=== PATIENT | female | born 1995 | race Caucasian/White ===

== ENCOUNTER 2017-07-20 03:22 | Inpatient (IN) | payer BC ==
[2017-07-20] MEDS ORDERED: Ondansetron 4 MG/2 ML SDV IVPUSH PRN ×2 (03:34→04:30)
[2017-07-20] MEDS ORDERED: Nalbuphine 20 MG/1 ML Amp IVPUSH PRN (03:34)
[2017-07-20] MEDS ORDERED: Sodium Chloride 0.9% 10 ML Syringe FLUSH PRN (03:34)
[2017-07-20] MEDS ORDERED: Acetaminophen 325 MG Tab PO PRN ×2 (03:34→12:27)
[2017-07-20] MEDS ORDERED: Oxytocin/Lactated Ringers 10 UNIT/1,000 ML BAG IV SCH (03:45)
--- NOTE | 2017-07-20 03:48 | PCM.LDHP ---
L&D History of Present Illness - General Date of Service: 07/20/17 Admit Problem/Dx: Patient Status Order with Admit Dx/Problem 07/20/17 03:35 Patient Status [ADT] Routine Admission Diagnosis/Problem Admission Diagnosis/Problem Normal labor Source of Information: Patient History Limitations: Reports: No Limitations - History of Present Illness Introduction:: Patient is a 22 y/o at 39 1/7 wks today who presents with concerns of SROM/ labor. States last night before bed had some contractions. Then awoke with what she thought was a gush of fluid. Contractions have been very intense since that time. 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: , Spontaneous : 2 Para: 0 LMP (Approximate): - Past Surgical History HEENT Surgical History: Reports: Oral Surgery (tooth extraction) GI Surgical History: Reports: Cholecystectomy, Colonoscopy, EGD Social & Family History - Tobacco Use Smoking Status *Q: Never Smoker - Alcohol Use Alcohol Use History: No - Recreational Drug Use Recreational Drug Use: No H&P Review of Systems - Review of Systems: Review Of Systems: See Below General: Reports: No Symptoms Gastrointestinal: Reports: Abdominal Pain Genitourinary: Reports: No Symptoms Musculoskeletal: Reports: No Symptoms Neurological: Reports: No Symptoms L&D Exam - Exam Exam: See Below - Vital Signs Weight: 89.04 kg - OB Specific Contraction Intensity: Moderate Movement: Active Heart Tones: Present Heart Tones per Min: 120 Heart Rate (FHR) Variability: Moderate (6-25 bmp) Presentation: Vertex - Ely Score Ely Score Cervix Position: Posterior Ely Score Consistency: Soft Ely Score Effacement: >80% Ely Score Dilation: 3-4 cm Ely Score 's Station: -2 Ely Score Total: 8 - Exam General: Alert, Oriented, Cooperative Lungs: Clear to Auscultation, Normal Respiratory Effort Cardiovascular: Regular Rate, Regular Rhythm GI/Abdominal Exam: Soft, Non-Tender Genitourinary: Normal external exam Extremities: Normal Inspection Skin: Warm, Dry, Intact - Problem List (1) 39 weeks gestation of SNOMED Code(s): 04558731 ICD Code: Z3A.39 - 39 WEEKS GESTATION OF Status: Acute Current Visit: Yes (2) Normal labor SNOMED Code(s): 42155668 ICD Code: O80 - ENCOUNTER FOR FULL-TERM UNCOMPLICATED DELIVERY; Z37.9 - OUTCOME OF DELIVERY, UNSPECIFIED Status: Acute Current Visit: Yes Problem List Initiated/Reviewed/Updated: Yes Orders Last 24hrs: Active Orders 24 hr Category Date Time Status Patient Status [ADT] Routine ADT 07/20/17 03:35 Ordered Activity as Tolerated [RC] PFP Care 07/20/17 03:35 Ordered Communication Order [RC] ASDIRECTED Care 07/20/17 03:35 Ordered Heart Tones [RC] ASDIRECTED Care 07/20/17 03:36 Ordered Notify Provider [RC] PFP Care 07/20/17 03:35 Ordered Notify Provider [RC] PRN Care 07/20/17 03:35 Ordered Peripheral IV Care [RC] . DIRECTED Care 07/20/17 03:36 Ordered Vital Signs [RC] PER UNIT ROUTINE Care 07/20/17 03:35 Ordered Regular Diet [DIET] Diet 07/20/17 Breakfast Ordered CBC W/O DIFF,HEMOGRAM [HEME] Urgent Lab 07/20/17 03:34 Ordered TYPE AND SCREEN [BBK] Urgent Lab 07/20/17 03:34 Ordered Acetaminophen [Tylenol] Med 07/20/17 03:34 Ordered 650 mg PO Q4H PRN Lactated Ringers [Ringers, Lactated] 1,000 ml Med 07/20/17 03:45 Ordered IV ASDIRECTED Nalbuphine [Nubain] Med 07/20/17 03:34 Ordered 10 mg IVPUSH Q2H PRN Ondansetron [Zofran] Med 07/20/17 03:34 Ordered 4 mg IVPUSH Q4H PRN Oxytocin/Lactated Ringers [Pitocin in LR 10 Units/1,000 Med 07/20/17 03:45 Ordered ML] 10 unit in 1,000 ml IV .CONTINUOUS Sodium Chloride 0.9% [Saline Flush] Med 07/20/17 03:34 Ordered 10 ml FLUSH ASDIRECTED PRN Electronic Heart Tones Ext w TOCO [WOMSER] Oth 07/20/17 03:35 Ordered Routine Electronic Heart Tones Internal [WOMSER] Per Unit Ot 07/20/17 03:35 Ordered Routine Peripheral IV Insertion Adult [OM.PC] Routine Oth 07/20/17 03:35 Ordered Resuscitation Status Routine Resus Stat 07/20/17 03:34 Ordered Medication Orders Acetaminophen (Tylenol) 650 mg PO Q4H PRN PRN Reason: Pain (Mild 1-3) and fever Lactated Ringer's (Ringers, Lactated) 1,000 mls @ 100 mls/hr IV ASDIRECTED YAW Oxytocin/Lactated Ringer's (Pitocin In Lr 10 Units/1,000 Ml) 10 unit in 1,000 mls @ 500 mls/hr IV .CONTINUOUS YAW Nalbuphine HCl (Nubain) 10 mg IVPUSH Q2H PRN PRN Reason: Pain (moderate 4-6) Ondansetron HCl (Zofran) 4 mg IVPUSH Q4H PRN PRN Reason: Nausea/Vomiting Sodium Chloride (Saline Flush) 10 ml FLUSH ASDIRECTED PRN PRN Reason: Keep Vein Open Assessment/Plan Comment:: 22 y/o at 39 1/7 wks presents with labor/SROM * CBC and T&S * GBS negative, no need for antibiotics * Pain management per patient preference, prefers epidural * Anticipate Peyton Fernandez MD
[2017-07-20] MEDS: Lactated Ringers 1,000 ML IV SCH ×2 (03:50→04:40)
[2017-07-20] MEDS ORDERED: fentaNYL 100 MCG/2 ML SDV EPIDUR ONE (04:30)
[2017-07-20] MEDS ORDERED: diphenhydrAMINE 50 MG/ML SDV IVPUSH PRN (04:30)
[2017-07-20] MEDS ORDERED: ePHEDrine 50 MG/ML SDV IVPUSH PRN (04:30)
--- NOTE | 2017-07-20 05:08 | PCM.PREANE ---
Preanesthetic Assessment - Anesthesia/Transfusion/Family Hx Anesthesia History: Prior Anesthesia Without Reaction Family History of Anesthesia Reaction: No Intubation History: Unknown - Review of Systems General: No Symptoms Pulmonary: No Symptoms Cardiovascular: No Symptoms Gastrointestinal: No Symptoms, Other (GERD) Neurological: No Symptoms Other: Reports: None - Physical Assessment Respiratory Rate: 20 Vital Signs: Last Vital Signs Temp 36.7 C 07/20/17 03:35 Pulse 95 07/20/17 03:35 Resp 20 07/20/17 03:35 BP 115/59 L 07/20/17 03:35 Pulse Ox Height: 1.6 m Weight: 90.718 kg ASA Class: 2 Mental Status: Alert & Oriented x3 Airway Class: Mallampati = 1 Dentition: Reports: Normal Dentition Thyro-Mental Finger Breadths: 3 Mouth Opening Finger Breadths: 3 ROM/Head Extension: Full Lungs: Clear to Auscultation, Normal Respiratory Effort Cardiovascular: Regular Rate, Regular Rhythm - Lab Values: Laboratory Last Values WBC 20.99 K/mm3 (3.98-10.04) H 07/20/17 03:52 RBC 4.09 M/mm3 (3.98-5.22) 07/20/17 03:52 Hgb 10.4 gm/L (11.2-15.7) L 07/20/17 03:52 Hct 32.5 % (34.1-44.9) L 07/20/17 03:52 MCV 79.5 fl (79.4-94.8) 07/20/17 03:52 MCH 25.4 pg (25.6-32.2) L 07/20/17 03:52 MCHC 32.0 g/dl (32.2-35.5) L 07/20/17 03:52 RDW Std Deviation 42.5 fL (36.4-46.3) 07/20/17 03:52 Plt Count 600 K/mm3 (182-369) H 07/20/17 03:52 MPV 9.7 fl (9.4-12.3) 07/20/17 03:52 Blood Type O POSITIVE 07/20/17 03:52 Gel Antibody Screen Negative 07/20/17 03:52 - Allergies Allergies/Adverse Reactions: Allergies Allergy/AdvReac Type Severity Reaction Status Date / Time metronidazole [From Flagyl] Allergy Swelling Verified 06/27/17 17:47 morphine Allergy Itching Verified 06/27/17 17:47 - Acknowledgements Anesthesia Type Planned: Epidural Pt an Appropriate Candidate for the Planned Anesthesia: Yes Alternatives and Risks of Anesthesia Discussed w Pt/Guardian: Yes Pt/Guardian Understands and Agrees with Anesthesia Plan: Yes 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: , Spontaneous - Past Surgical History HEENT Surgical History: Reports: Oral Surgery (tooth extraction) GI Surgical History: Reports: Cholecystectomy, Colonoscopy, EGD - SUBSTANCE USE Smoking Status *Q: Never Smoker Recreational Drug Use History: No - HOME MEDS Home Medications: Home Meds Cimetidine [Tagamet Hb] 200 mg PO DAILY 06/27/17 [History] Omeprazole/Sodium Bicarbonate [Omeprazole-Bicarb 40-1,100 Cap] 1 each PO BID 09/03 [History] Rhl933/FA/Omega3/Dha/Fish Oil [ Gummies] 1 each PO DAILY 06/27/17 [ History] - CURRENT (IN HOUSE) MEDS Current Meds: Current Medications Acetaminophen (Tylenol) 650 mg PO Q4H PRN PRN Reason: Pain (Mild 1-3) and fever Diphenhydramine HCl (Benadryl) 25 mg IVPUSH Q6H PRN PRN Reason: Pruritis Ephedrine Sulfate (Ephedrine Sulfate) 5 mg IVPUSH ASDIRECTED PRN PRN Reason: Hypotension Fentanyl/Bupivacaine HCl (Fentanyl/Bupivacaine/Ns 2 Mcg-0.125% 100 Ml) 100 ml EPIDUR ASDIRECTED YAW Lactated Ringer's (Ringers, Lactated) 1,000 mls @ 100 mls/hr IV ASDIRECTED YAW Oxytocin/Lactated Ringer's (Pitocin In Lr 10 Units/1,000 Ml) 10 unit in 1,000 mls @ 500 mls/hr IV .CONTINUOUS YAW Nalbuphine HCl (Nubain) 10 mg IVPUSH Q2H PRN PRN Reason: Pain (moderate 4-6) Ondansetron HCl (Zofran) 4 mg IVPUSH Q4H PRN PRN Reason: Nausea/Vomiting Ondansetron HCl (Zofran) 4 mg IVPUSH ONETIME PRN PRN Reason: Nausea/Vomiting Sodium Chloride (Saline Flush) 10 ml FLUSH ASDIRECTED PRN PRN Reason: Keep Vein Open Discontinued Medications Fentanyl (Sublimaze) 100 mcg EPIDUR ONETIME ONE Stop: 07/20/17 04:31
[2017-07-20] MEDS: Bupivacaine/fentaNYL/NS 100 ML Bag EPIDUR SCH ×2 (05:10→11:00)
--- NOTE | 2017-07-20 07:33 | PCM.PNLD ---
Labor Progress Note - VS & Meds Vital Signs: Last Vital Signs Temp 36.7 C 07/20/17 03:35 Pulse 95 07/20/17 03:35 Resp 20 07/20/17 05:08 BP 115/59 L 07/20/17 03:35 Pulse Ox Active Medications: Current Medications Acetaminophen (Tylenol) 650 mg PO Q4H PRN PRN Reason: Pain (Mild 1-3) and fever Diphenhydramine HCl (Benadryl) 25 mg IVPUSH Q6H PRN PRN Reason: Pruritis Ephedrine Sulfate (Ephedrine Sulfate) 5 mg IVPUSH ASDIRECTED PRN PRN Reason: Hypotension Fentanyl/Bupivacaine HCl (Fentanyl/Bupivacaine/Ns 2 Mcg-0.125% 100 Ml) 100 ml EPIDUR ASDIRECTED YAW Last Admin: 07/20/17 05:10 Dose: 100 ml Lactated Ringer's (Ringers, Lactated) 1,000 mls @ 100 mls/hr IV ASDIRECTED [facility] Last Admin: 07/20/17 04:40 Dose: 100 mls/hr Oxytocin/Lactated Ringer's (Pitocin In Lr 10 Units/1,000 Ml) 10 unit in 1,000 mls @ 500 mls/hr IV .CONTINUOUS [facility] Nalbuphine HCl (Nubain) 10 mg IVPUSH Q2H PRN PRN Reason: Pain (moderate 4-6) Ondansetron HCl (Zofran) 4 mg IVPUSH Q4H PRN PRN Reason: Nausea/Vomiting Ondansetron HCl (Zofran) 4 mg IVPUSH ONETIME PRN PRN Reason: Nausea/Vomiting Sodium Chloride (Saline Flush) 10 ml FLUSH ASDIRECTED PRN PRN Reason: Keep Vein Open Discontinued Medications Fentanyl (Sublimaze) 100 mcg EPIDUR ONETIME ONE Stop: 07/20/17 04:31 Last Admin: 07/20/17 05:10 Dose: 100 mcg - Uterine Contractions Uterine Monitoring Mode: External [place] Contraction Intensity: Moderate Uterine Resting Tone: Soft - Monitoring Monitor Mode: External Ultrasound Heart Rate (FHR) Baseline: 115 Heart Rate (FHR) Variability: Moderate (6-25 bmp) Accelerations: Present, 15x15 Decelerations: None Strip Review: Category I - Vaginal Exam Dilation (cm): 5-6 Effacement (Percent): 100 Station: 0 Cervical Position: Midposition - Labor Progress (Free Text) Labor Progress: Patient doing well. Comfortable with epidural. Continues to leak clear fluid. Making good change without augmentation. Continue present management.
--- NOTE | 2017-07-20 08:43 | PCM.SN ---
- Free Text/Narrative Note: Called for increasing pain with contractions. Evaluated epidural catheter and it remains at 9cm at the skin. Patient wishes to proceed with epidural bolus. 10ml of 0.25% Bupivacaine was injected following negative aspiration in 5ml increments. Patient verbalized increased comfort. Epidural level achieved was T10 after 15 minutes. Vital signs remained stable.
[2017-07-20] MEDS ORDERED: Oxytocin 10 Units/1 ML SDV ONE (11:41)
[2017-07-20] MEDS ORDERED: Oxytocin 10 Units/1 ML SDV IM ONE (11:45)
--- NOTE | 2017-07-20 12:15 | PCM.DEL ---
L & D Note - General Info Date of Service: 07/20/17 - Delivery Note Labor: Spontaneous Delivery Outcome: Livebirth Delivery Method: Spontaneous Vaginal Delivery Delivery Mode: Spontaneous Presentation: Right Occiput Anterior (MARIMAR) Nuchal Cord: Present (Tight, not reduced ) Anesthesia Type: Epidural Amniotic Fluid Description: Clear Episiotomy Type: None Laceration: 1st Degree (perineal), Labial (left) Suture type: Vicryl Suture size: 2-0 Placenta: Intact, Spontaneous Cord: 3 Vessels Estimated Blood Loss: 300 [place]: Bulb Syringe, Stimulated, Warmed, [place] Used, Warmer Used Score 1 min: 8 Score 5 min: 9 Delivery Comments (Free Text/Narrative):: Patient found to be complete and began pushing. With maternal pushing effort head delivered from an MARIMAR presentation. Nuchal cord present, but tight and so not reduced. With gentle downward tractions the shoulders and body delivered. Infant placed on maternal abdomen. Cord clamped and cut. Cord blood obtained. Placenta allowed time to separate and spontaneously expelled. Inspection showed a 1st degree perineal laceration which was repaired with a single interrupted suture of 2-0 vicryl and a left sided labial tear which was repaired with a running 2-0 vicryl. - Patient Data Vitals - Most Recent: Last Vital Signs Temp 36.7 C 07/20/17 03:35 Pulse 95 07/20/17 03:35 Resp 20 07/20/17 05:08 BP 115/59 L 07/20/17 03:35 Pulse Ox Weight - Most Recent: 90.718 kg I&O - Last 24 Hours: Intake & Output 07/19/17 07/20/17 07/20/17 22:59 06:59 14:59 Intake Total 1000 Balance 1000 Lab Results Last 24 Hours: Laboratory Results - last 24 hr 07/20/17 07/20/17 Range/Units 03:52 03:52 WBC 20.99 H (3.98-10.04) K/mm3 RBC 4.09 (3.98-5.22) M/mm3 Hgb 10.4 L (11.2-15.7) gm/L Hct 32.5 L (34.1-44.9) % MCV 79.5 (79.4-94.8) fl MCH 25.4 L (25.6-32.2) pg MCHC 32.0 L (32.2-35.5) g/dl RDW Std Deviation 42.5 (36.4-46.3) fL Plt Count 600 H (182-369) K/mm3 MPV 9.7 (9.4-12.3) fl Blood Type O POSITIVE Gel Antibody Screen Negative Med Orders - Current: Current Medications Acetaminophen (Tylenol) 650 mg PO Q4H PRN PRN Reason: Pain (Mild 1-3) and fever Diphenhydramine HCl (Benadryl) 25 mg IVPUSH Q6H PRN PRN Reason: Pruritis Ephedrine Sulfate (Ephedrine Sulfate) 5 mg IVPUSH ASDIRECTED PRN PRN Reason: Hypotension Fentanyl/Bupivacaine HCl (Fentanyl/Bupivacaine/Ns 2 Mcg-0.125% 100 Ml) 100 ml EPIDUR ASDIRECTED YAW Last Admin: 07/20/17 11:00 Dose: 100 ml Lactated Ringer's (Ringers, Lactated) 1,000 mls @ 100 mls/hr IV ASDIRECTED [facility] Last Admin: 07/20/17 04:40 Dose: 100 mls/hr Oxytocin/Lactated Ringer's (Pitocin In Lr 10 Units/1,000 Ml) 10 unit in 1,000 mls @ 500 mls/hr IV .CONTINUOUS YAW Last Admin: 07/20/17 11:27 Dose: 500 mls/hr Nalbuphine HCl (Nubain) 10 mg IVPUSH Q2H PRN PRN Reason: Pain (moderate 4-6) Ondansetron HCl (Zofran) 4 mg IVPUSH Q4H PRN PRN Reason: Nausea/Vomiting Ondansetron HCl (Zofran) 4 mg IVPUSH ONETIME PRN PRN Reason: Nausea/Vomiting Sodium Chloride (Saline Flush) 10 ml FLUSH ASDIRECTED PRN PRN Reason: Keep Vein Open Discontinued Medications Fentanyl (Sublimaze) 100 mcg EPIDUR ONETIME ONE Stop: 07/20/17 04:31 Last Admin: 07/20/17 05:10 Dose: 100 mcg Oxytocin (Pitocin) Confirm Administered Dose 10 unit .ROUTE .STK-MED ONE Stop: 07/20/17 11:42 - Problem List & Annotations (1) 39 weeks gestation of SNOMED Code(s): 05483104 Code(s): Z3A.39 - 39 WEEKS GESTATION OF Status: Acute Current Visit: Yes (2) Normal labor SNOMED Code(s): 94136471 Code(s): O80 - ENCOUNTER FOR FULL-TERM UNCOMPLICATED DELIVERY; Z37.9 - OUTCOME OF DELIVERY, UNSPECIFIED Status: Acute Current Visit: Yes (3) Vaginal delivery SNOMED Code(s): 916490406 Code(s): O80 - ENCOUNTER FOR FULL-TERM UNCOMPLICATED DELIVERY Status: Acute Current Visit: Yes - Problem List Review Problem List Initiated/Reviewed/Updated: Yes - My Orders Last 24 Hours: My Active Orders 07/20/17 03:34 Acetaminophen [Tylenol] 650 mg PO Q4H PRN Nalbuphine [Nubain] 10 mg IVPUSH Q2H PRN Ondansetron [Zofran] 4 mg IVPUSH Q4H PRN Sodium Chloride 0.9% [Saline Flush] 10 ml FLUSH ASDIRECTED PRN Resuscitation Status Routine 07/20/17 03:35 Patient Status [ADT] Routine Activity as Tolerated [RC] PFP Communication Order [RC] ASDIRECTED Notify Provider [RC] PFP Notify Provider [RC] PRN Vital Signs [RC] PER UNIT ROUTINE Electronic Heart Tones Ext w TOCO [WOMSER] Routine Electronic Heart Tones Internal [WOMSER] Per Unit Routine Peripheral IV Insertion Adult [OM.PC] Routine 07/20/17 03:45 Lactated Ringers [Ringers, Lactated] 1,000 ml IV ASDIRECTED Oxytocin/Lactated Ringers [Pitocin in LR 10 Units/1,000 ML] 10 unit in 1,000 ml IV .CONTINUOUS 07/20/17 12:08 Patient Status Manage Transfer [TRANSFER] Routine 07/20/17 Breakfast Regular Diet [DIET] - Assessment Assessment:: 22 y/o G2 now P1011 PPD#0 from at 39 1/7 wks - Plan Plan:: * Routine cares * Encourage breast feeding * Discharge home in 1-2 days Peyton Fernandez MD
[2017-07-20] MEDS ORDERED: Benzocaine/Menthol 20%-0.5% Spray 56 GM Canister TOP PRN (12:27)
[2017-07-20] MEDS ORDERED: Witch Hazel Medicated Pads 100/Jar TOP PRN (12:27)
[2017-07-20] MEDS ORDERED: Lanolin 100% Cream 7 GM Tube TOP PRN (12:27)
[2017-07-20] MEDS ORDERED: Bupivacaine 0.25% 10 ML SDV ONE (12:27)
[2017-07-20] MEDS ORDERED: Docusate Sodium 100 MG Cap PO PRN (12:27)
[2017-07-20] MEDS: Ibuprofen 600 MG Tab PO PRN (20:17)
[2017-07-21] MEDS: Ibuprofen 600 MG Tab PO PRN (02:11)
--- NOTE | 2017-07-21 07:36 | PCM.PNPP ---
- General Info Date of Service: 07/21/17 Functional Status: Reports: Pain Controlled, Tolerating Diet, Ambulating, Urinating - Review of Systems General: Reports: No Symptoms Pulmonary: Reports: No Symptoms Cardiovascular: Reports: No Symptoms Gastrointestinal: Reports: No Symptoms Genitourinary: Reports: No Symptoms Musculoskeletal: Reports: No Symptoms - Patient Data Vital Signs - Most Recent: Last Vital Signs Temp 37.0 C 07/20/17 20:14 Pulse 85 07/21/17 03:04 Resp 16 07/21/17 03:04 BP 133/56 L 07/21/17 03:04 Pulse Ox 99 07/21/17 03:04 Weight - Most Recent: 90.718 kg Med Orders - Current: Current Medications Acetaminophen (Tylenol) 650 mg PO Q4H PRN PRN Reason: mild pain or fever Benzocaine/Menthol (Dermoplast Pain Relief [place]) 0 gm TOP ASDIRECTED PRN PRN Reason: Perineal Comfort Measure Docusate Sodium (Colace) 100 mg PO BID PRN PRN Reason: Constipation Emollient Ointment (Lansinoh Hpa) 0 gm TOP ASDIRECTED PRN PRN Reason: Sore Nipples Ibuprofen (Motrin) 600 mg PO Q6H PRN PRN Reason: Mild pain or fever Last Admin: 07/21/17 02:11 Dose: 600 mg Witch [place] (Tucks) 1 pad TOP ASDIRECTED PRN PRN Reason: Hemorrhoid pain Discontinued Medications Acetaminophen (Tylenol) 650 mg PO Q4H PRN PRN Reason: Pain (Mild 1-3) and fever Diphenhydramine HCl (Benadryl) 25 mg IVPUSH Q6H PRN PRN Reason: Pruritis Ephedrine Sulfate (Ephedrine Sulfate) 5 mg IVPUSH ASDIRECTED PRN PRN Reason: Hypotension Fentanyl (Sublimaze) 100 mcg EPIDUR ONETIME ONE Stop: 07/20/17 04:31 Last Admin: 07/20/17 05:10 Dose: 100 mcg Fentanyl/Bupivacaine HCl (Fentanyl/Bupivacaine/Ns 2 Mcg-0.125% 100 Ml) 100 ml EPIDUR ASDIRECTED [facility] Last Admin: 07/20/17 11:00 Dose: 100 ml Lactated Ringer's (Ringers, Lactated) 1,000 mls @ 100 mls/hr IV ASDIRECTED [facility] Last Admin: 07/20/17 04:40 Dose: 100 mls/hr Oxytocin/Lactated Ringer's (Pitocin In Lr 10 Units/1,000 Ml) 10 unit in 1,000 mls @ 500 mls/hr IV .CONTINUOUS YAW Nalbuphine HCl (Nubain) 10 mg IVPUSH Q2H PRN PRN Reason: Pain (moderate 4-6) Ondansetron HCl (Zofran) 4 mg IVPUSH Q4H PRN PRN Reason: Nausea/Vomiting Ondansetron HCl (Zofran) 4 mg IVPUSH ONETIME PRN PRN Reason: Nausea/Vomiting Oxytocin (Pitocin) Confirm Administered Dose 10 unit .ROUTE .STK-MED ONE Stop: 07/20/17 11:42 Last Admin: 07/20/17 15:47 Dose: Not Given Oxytocin (Pitocin) 10 unit IM ONETIME ONE Stop: 07/20/17 11:46 Last Admin: 07/20/17 11:45 Dose: 10 unit Sodium Chloride (Saline Flush) 10 ml FLUSH ASDIRECTED PRN PRN Reason: Keep Vein Open - Infant Interaction Disposition, : [place] in Room with Family Interaction: Holding Feeding: Breastfed Infant; Nursed Well Support Person: - Recovery Exam Fundal Tone: Firm Fundal Level: 1 Fingerbreadths Below Umbilicus Fundal Placement: Midline Lochia Amount: Small Bladder Status: Voiding Urinary Elimination: Voided - Exam General: Alert, Oriented, Cooperative GI/Abdominal Exam: Soft, Non-Tender Extremities: Normal Inspection Skin: Warm, Dry, Intact - Problem List & Annotations (1) 39 weeks gestation of SNOMED Code(s): 63776690 Code(s): Z3A.39 - 39 WEEKS GESTATION OF Status: Acute Current Visit: Yes (2) Normal labor SNOMED Code(s): 72576084 Code(s): O80 - ENCOUNTER FOR FULL-TERM UNCOMPLICATED DELIVERY; Z37.9 - OUTCOME OF DELIVERY, UNSPECIFIED Status: Acute Current Visit: Yes (3) Vaginal delivery SNOMED Code(s): 000692842 Code(s): O80 - ENCOUNTER FOR FULL-TERM UNCOMPLICATED DELIVERY Status: Acute Current Visit: Yes - Problem List Review Problem List Initiated/Reviewed/Updated: Yes - My Orders Last 24 Hours: My Active Orders 07/20/17 12:27 Activity as Tolerated [RC] Vital Signs [RC] 04,12,20 Acetaminophen [Tylenol] 650 mg PO Q4H PRN Benzocaine/Menthol [Dermoplast Pain Relief [place]] See Dose Instructions TOP ASDIRECTED PRN Docusate Sodium [Colace] 100 mg PO BID PRN Ibuprofen [Motrin] 600 mg PO Q6H PRN Lanolin [Lansinoh HPA] See Dose Instructions TOP ASDIRECTED PRN Witch [place] [Tucks] 1 pad TOP ASDIRECTED PRN Assess Lochia [WOMSER] Per Unit Routine Assess Uterine Involution [WOMSER] Per Unit Routine Breast Pump [WOMSER] Per Unit Routine Heat Therapy [OM.PC] PRN Ice Therapy [OM.PC] Per Unit Routine Perineal Care [OM.PC] Per Unit Routine Peripheral IV Discontinue [OM.PC] Routine Sitz Bath [OM.PC] Per Unit Routine 07/20/17 Lunch Regular Diet [DIET] 07/21/17 12:27 Heat Therapy [OM.PC] PRN - Assessment Assessment:: 22 y/o G2 now P1011 PPD#1 from at 39 1/7 wks - Plan Plan:: * Routine cares * Encourage breast feeding * Discharge home today per patient preference Peyton Fernandez MD
--- NOTE | 2017-07-21 07:38 | PCM.DCSUM1 ---
Discharge Summary - Discharge Data Discharge Date: 07/21/17 Discharge Disposition: Home, Self-Care 01 Condition: Good - Discharge Diagnosis/Problem(s) (1) 39 weeks gestation of SNOMED Code(s): 99153946 ICD Code: Z3A.39 - 39 WEEKS GESTATION OF Status: Acute Current Visit: Yes (2) Normal labor SNOMED Code(s): 71638013 ICD Code: O80 - ENCOUNTER FOR FULL-TERM UNCOMPLICATED DELIVERY; Z37.9 - OUTCOME OF DELIVERY, UNSPECIFIED Status: Acute Current Visit: Yes (3) Vaginal delivery SNOMED Code(s): 229901324 ICD Code: O80 - ENCOUNTER FOR FULL-TERM UNCOMPLICATED DELIVERY Status: Acute Current Visit: Yes - Patient Summary/Data Complications: None Consults: None Recommended Follow-up Testing/Procedures: Follow up in 5-6 weeks for check Hospital Course: Patient is a 22 y/o who was admitted at 39 1/7 wks with SROM/labor. She progressed well to complete dilation without the need for augmentation and underwent an uncomplicated . See delivery note. she did well and requested discharge home on PPD#1. - Patient Instructions Diet: Regular Diet as Tolerated Activity: As Tolerated Activity, Other: Pelvic Rest for 6 weeks Driving: May Drive Today Showering/Bathing: May Shower Showering/Bathing, Other: May Bathe Notify Provider of: Fever, Increased Pain, Swelling and Redness, Drainage, Nausea and/or Vomiting - Discharge Plan Home Medications: Home Meds Cimetidine [Tagamet Hb] 200 mg PO DAILY 06/27/17 [History] Omeprazole/Sodium Bicarbonate [Omeprazole-Bicarb 40-1,100 Cap] 1 each PO BID 09/03 [History] Gzh116/FA/Omega3/Dha/Fish Oil [ Gummies] 1 each PO DAILY 06/27/17 [ History] Docusate Sodium [Colace] 100 mg PO BID PRN cap 07/21/17 [Rx] Ibuprofen [IJD: Ibuprofen] 600 mg PO Q6H PRN tablet 07/21/17 [Rx] Referrals: Sandy Rousseau MD [Physician] - (5-6 weeks for post check ) - Discharge Summary/Plan Comment DC Time >30 min.: No - Patient Data Vitals - Most Recent: Last Vital Signs Temp 37.0 C 07/20/17 20:14 Pulse 85 07/21/17 03:04 Resp 16 07/21/17 03:04 BP 133/56 L 07/21/17 03:04 Pulse Ox 99 07/21/17 03:04 Weight - Most Recent: 90.718 kg Med Orders - Current: Current Medications Acetaminophen (Tylenol) 650 mg PO Q4H PRN PRN Reason: mild pain or fever Benzocaine/Menthol (Dermoplast Pain Relief [place]) 0 gm TOP ASDIRECTED PRN PRN Reason: Perineal Comfort Measure Docusate Sodium (Colace) 100 mg PO BID PRN PRN Reason: Constipation Emollient Ointment (Lansinoh Hpa) 0 gm TOP ASDIRECTED PRN PRN Reason: Sore Nipples Ibuprofen (Motrin) 600 mg PO Q6H PRN PRN Reason: Mild pain or fever Last Admin: 07/21/17 02:11 Dose: 600 mg [place] (Tucks) 1 pad TOP ASDIRECTED PRN PRN Reason: Hemorrhoid pain Discontinued Medications Acetaminophen (Tylenol) 650 mg PO Q4H PRN PRN Reason: Pain (Mild 1-3) and fever Diphenhydramine HCl (Benadryl) 25 mg IVPUSH Q6H PRN PRN Reason: Pruritis Ephedrine Sulfate (Ephedrine Sulfate) 5 mg IVPUSH ASDIRECTED PRN PRN Reason: Hypotension Fentanyl (Sublimaze) 100 mcg EPIDUR ONETIME ONE Stop: 07/20/17 04:31 Last Admin: 07/20/17 05:10 Dose: 100 mcg Fentanyl/Bupivacaine HCl (Fentanyl/Bupivacaine/Ns 2 Mcg-0.125% 100 Ml) 100 ml EPIDUR ASDIRECTED [facility] Last Admin: 07/20/17 11:00 Dose: 100 ml Lactated Ringer's (Ringers, Lactated) 1,000 mls @ 100 mls/hr IV ASDIRECTED [facility] Last Admin: 07/20/17 04:40 Dose: 100 mls/hr Oxytocin/Lactated Ringer's (Pitocin In Lr 10 Units/1,000 Ml) 10 unit in 1,000 mls @ 500 mls/hr IV .CONTINUOUS [facility] Nalbuphine HCl (Nubain) 10 mg IVPUSH Q2H PRN PRN Reason: Pain (moderate 4-6) Ondansetron HCl (Zofran) 4 mg IVPUSH Q4H PRN PRN Reason: Nausea/Vomiting Ondansetron HCl (Zofran) 4 mg IVPUSH ONETIME PRN PRN Reason: Nausea/Vomiting Oxytocin (Pitocin) Confirm Administered Dose 10 unit .ROUTE .STK-MED ONE Stop: 07/20/17 11:42 Last Admin: 07/20/17 15:47 Dose: Not Given Oxytocin (Pitocin) 10 unit IM ONETIME ONE Stop: 07/20/17 11:46 Last Admin: 07/20/17 11:45 Dose: 10 unit Sodium Chloride (Saline Flush) 10 ml FLUSH ASDIRECTED PRN PRN Reason: Keep Vein Open *Q Meaningful Use (DIS) - VTE *Q VTE Criteria *Q: - Stroke *Q Stroke Criteria *Q: - AMI *Q AMI Criteria *Q:
--- NOTE | 2017-07-21 11:21 | PCM48HPAN ---
Post Anesthesia Note - EVALUATION WITHIN 48HRS OF ANESTHETIC Vital Signs in Normal Range: Yes Patient Participated in Evaluation: Yes Respiratory Function Stable: Yes Airway Patent: Yes Cardiovascular Function Stable: Yes Hydration Status Stable: Yes Pain Control Satisfactory: Yes Nausea and Vomiting Control Satisfactory: Yes Mental Status Recovered: Yes - COMMENTS/OBSERVATIONS Free Text/Narrative:: Patient up and ambulating with ease, denies numbness or tingling in extremities , denies headache. Satisfied with her level of comfort during labor/delivery. No further questions at this time.
[2017-07-21 17:17] VITALS: BP 102/65
== END 2017-07-21 16:30 | disposition home or self-care (01) | DRG 560 ==
LOC: JD.OBCHECK 03:22 → JD.OB 03:25 → JD.OBCHECK 03:43 → JD.OB 03:46 → OBSVTOIN 11:25
PROVIDERS: ADMIT Obstetrics & Gynecology; ATTEND Obstetrics & Gynecology
PROC: 10E0XZZ Delivery of Products of Conception, External Approach (ICD-10-PCS; principal; 2017-07-20)
PROC: 0HQ9XZZ Repair Perineum Skin, External Approach (ICD-10-PCS; 2017-07-20)
PROC: 00HU33Z Insertion of Infusion Device into Spinal Canal, Percutaneous Approach (ICD-10-PCS; 2017-07-20)
PROC: 3E0R3CZ (ICD-10-PCS; 2017-07-20)
DX: O42.02 Full-term premature rupture of membranes, onset of labor within 24 hours of rupture (principal); Z3A.39 39 weeks gestation of pregnancy; Z37.0 Single live birth; O70.0 First degree perineal laceration during delivery; O69.81X0 Labor and delivery complicated by cord around neck, without compression, not applicable or unspecified; Z88.6 Allergy status to analgesic agent; Z88.1 Allergy status to other antibiotic agents
CPT/HCPCS: 36415; 85027; 86850; 86900; 86901; A9270-GY; J2590; J3010; J7120